=== PATIENT | male | born 1990 | race Caucasian/White ===

== ENCOUNTER 2025-05-29 11:39 | Emergency (ER) | payer SELFPAY ==
[2025-05-29 11:40] VITALS: BP 131/83; PULSE 88; RESP 18; TEMP 37; O2SAT 100
[2025-05-29 11:45] VITALS: BMI 25.8
--- NOTE | 2025-05-29 12:00 | EDNOTE_ITS ---
<Statement entered by Wendy Griffith MD - 06/13/25 14:16> As co-signing physician, I was present and available for consult prn. I concur with the plan and care as documented by the midlevel provider. ED Medical Clearance RME/HPI General Chief complaint: Medical Clearance Stated complaint: MEDICAL CLEARANCE Time Seen by Provider: 05/29/25 11:57 Arrival date/time: 05/29/25 11:39 This is a 34-year-old male that comes into the emergency room with complaints of need for medical clearance for incarceration. Patient has no complaints however he does have an abscess to his left upper arm. Patient states that been there for a few days and it is draining already. Patient has some mild surrounding erythema. Area is approximately 2 cm x 2 cm and it is already open. Related Information Previous Rx's ?Medication ?Instructions ?Recorded doxycycline hyclate 100 mg tablet 100 mg PO BID #14 ta bs 05/29/25 ibuprofen 600 mg tablet 600 mg PO QID PRN pain #10 t abs 05/29/25 Allergies Allergy/AdvReac Type Severity Reaction Status Date / Time No Known Allergies Allergy Verified 05/29/25 11:49 Review of Systems Review of Systems Systems Reviewed: All systems reviewed, normal except as documented Past Medical History Past Medical History Comments PMH COMMENT: Denies ED Exam Narrative Physical exam: VITAL SIGNS: Reviewed. GENERAL APPEARANCE: Alert and interactive, follows commands, no acute distress, HEAD AND FACE: Non-traumatic. ENT: PERRL, conjuctiva pink and clear, eyelid no trauma, Mucous membrane moist. NECK: Supple, nontender, no nuchal rigidity. CHEST: No tenderness, no crepitus, no paradoxical movement, no retractions. LUNGS: Clear, well ventilated, symmetric, no rales, no wheezing, no rhonchi, no stridor, good breath sounds bilaterally. HEART: Regular rate, regular rhythm, no murmur, no gallops. ABDOMEN: Soft, nondistended, no guarding, nontender, no rebound, no masses, NEUROLOGICAL: Gross motor function intact sensory function intact, Appropriate for age. MUSCULOSKELETAL: low back nontender, full range of motion. EXTREMITIES: No redness no swelling no skin breakdown on bilateral foot and leg. Distal neurovascular status intact bilateral foot SKIN: Color pink, dry, 2 cm x 2 cm abscess to the left upper arm mild surrounding erythema appears to be draining already. No fluctuance mild induration. Course Quality Measures none Orders Category Date Time Status Ibuprofen Tab [Motrin Tab] Med 05/29/25 12:01 Discontinued 800 mg PO X1 ONE TET,DIP/PERT AC (Adult)-Tdap [Boostrix Adult (Tdap) Med 05/29/25 12:07 Discontinued Vacc] 0.5 ml IMI .ONCE ONE cefTRIAXone [Rocephin] 1,000 mg Med 05/29/25 12:01 Discontinued Lidocaine 1% 20 ml [Xylocaine 1% 20 ML] 2.1 ml IM X1 Vital Signs Vital signs: Vital Signs Temperature 98.6 F 05/29/25 11:40 Pulse Rate 88 05/29/25 11:40 Respiratory Rate 18 05/29/25 11:40 Blood Pressure 131/83 H 05/29/25 11:40 Pulse Oximetry (%) 100 05/29/25 11:40 Oxygen Delivery Method Room Air 05/29/25 11:40 Medical Clearance MDM Narrative MDM Narrative:: Today will not do an I&D as abscess appears to already be open and draining. Will treat patient with a dose of Rocephin here. Patient will also be given a tetanus shot. I gave patient Rocephin and ibuprofen. Will send patient home on antibiotics. Patient told to use warm compresses. Come to the emergency room symptoms change or worsen. Dragon dictation: Although this document has been carefully reviewed, there may still be some phonetic and other typographical errors. These errors are purely grammatical due to imperfections in the software program and should not be construed in any way to compromise the substance of the patient's medical care during this visit. Patient data External records reviewed:: [facility] previous records Clinical information provided by:: patient Social determinants that could affect healthcare access:: none Patient has the following chronic illnesses:: None How is presenting disease/condition affected by chronic disease/condition?: no chronic disease Evaluation data The following diagnostics were reviewed and interpreted by me:: other (specify) Lab and/or radiology exams considered but not ordered:: None Interpretation Summary: Abscess already draining cellulitis Medications / Prescriptions Medications or Prescriptions considered but not ordered:: None Medication administrations:: Medication Administration History Discontinued Medications Ceftriaxone Sodium 1,000 mg/ (Lidocaine HCl 2.1 ml) 0 mg IM X1 ONE Stop: 05/29/25 12:02 Last Admin: 05/29/25 12:09 Dose: 1,000 mg Documented By: [facility] Diphtheria/Tetanus/Acell Pertussis (Diphth,Pertuss(Acell),Tet Vac 0.5 Ml Syr- Adult) 0.5 ml IMi .ONCE ONE Stop: 05/29/25 12:08 Last Admin: 05/29/25 12:13 Dose: 0.5 ml Documented By: KALE Ibuprofen (Ibuprofen Tab 400 Mg Tablet) 800 mg PO X1 ONE Stop: 05/29/25 12:02 Last Admin: 05/29/25 12:09 Dose: 800 mg Documented By: KALE See MAR Consultations Consultation(s) initiated? (list below): No Diagnosis Medical Clearance Differential Diagnosis: other (Medical clearance for prison, abscess, cellulitis) Most likely diagnosis given after review of the tests above:: Abscess already draining with cellulitis. Admission Indicated Admission indicated?: not indicated Admission Request Was there a request for admission?: No Disposition Plan Disposition Plan: Discharge Discharge Attestation Discharge Attestation: The patient and all family members were given an opportunity to ask questions and understood the discharge instructions. Discharge instructions specifically effects, indications for sooner follow up or return to the emergency department, and the expected course of current diagnosis. Patient condition: Stable Discharge Plan Plan Patient Disposition: Prison/Court/Law Patient condition on transfer: Stable Prescriptions/Referrals Prescriptions/Med Rec: New ibuprofen 600 mg tablet 600 mg PO QID PRN (Reason: pain) Qty: 10 0RF doxycycline hyclate 100 mg tablet 100 mg PO BID Qty: 14 0RF Problem List Clinical Impression: Cellulitis, Abscess of arm, left, Medical clearance for incarceration Patient/Caregiver Discharge Instructions Discharge Activity: activity as tolerated Education Materials: ED Abscess Antibiotic ..., ED Cellulitis Additional Instructions: Follow up with primary provider in 1-2 days. Come back to ED if symptoms change or worsen Print Language: [place] Stand Alone Forms: Larissa Award Info., Patient Portal Info Letter PA/PRODUCTION UTILITY WORKER Supervising Physician PA/PRODUCTION UTILITY WORKER Supervising Physician: whitney
[2025-05-29] MEDS: IBUPROFEN TAB 400 MG TABLET 800 MG PO (12:09)
[2025-05-29] MEDS: cefTRIAXone 1,000 MG, LIDOCAINE 1% 20 ML 2.1 ML IM (12:09)
[2025-05-29] MEDS: DIPHTH,PERTUSS(ACELL),TET VAC 0.5 ML SYR- ADULT IMi (12:13)
== END 2025-05-29 12:33 ==
LOC: SERX 12:27
PROVIDERS: Emergency Provider Nurse Practitioner Family
DX: L02.414 Cutaneous abscess of left upper limb (principal)
CPT/HCPCS: 90471; 90715; 96372; 99282; J0696; J3490; A9270